=== PATIENT | female | born 1980 | race Caucasian/White ===

== ENCOUNTER → 2020-03-15 17:02 | Outpatient (BNVA) | payer BC, SELFPAY | PROVIDERS: Family Provider Nurse Practitioner Family; PCP Nurse Practitioner Family; Visit Provider Nurse Practitioner Family | DX: Z79.899 Other long term (current) drug therapy (principal); R53.83 Other fatigue; E78.2 Mixed hyperlipidemia; D64.9 Anemia, unspecified; E55.9 Vitamin D deficiency, unspecified; R55 Syncope and collapse | CPT/HCPCS: 36415; 80053; 80061; 81001; 82306; 82607; 83036; 83540; 84443; 85025 ==

== ENCOUNTER → 2022-09-05 12:57 | Outpatient (BNVA) | payer SELFPAY | PROVIDERS: Family Provider Nurse Practitioner Family; PCP Nurse Practitioner; Visit Provider Nurse Practitioner | DX: R50.9 Fever, unspecified (principal); J02.0 Streptococcal pharyngitis | CPT/HCPCS: 87400; 87426 ==

== ENCOUNTER 2023-11-07 13:15 | Outpatient (CLI) | payer SELFPAY ==
--- NOTE | 2023-11-07 13:32 | US_ITS ---
WS: [id number] BILATERAL 3D TOMOSYNTHESIS DIGITAL DIAGNOSTIC MAMMOGRAPHY WITH CAD CLINICAL INFORMATION: Lumps in breasts HISTORY: Palpable lump RIGHT breast COMPARISON: 2019 TECHNIQUE: Bilateral CC, MLO, and ML views. FINDINGS: The breasts are composed of heterogeneous fibroglandular density, which can limit the detection of sm all underlying mass lesions. Palpable markers RIGHT breast anteriorly. Deep to the palpable markers i s a partially obscured ovoid density measuring 2.1 x 1.6 cm. Ultrasound is pending. Ovoid nodular densities deep to the LEFT areola anteriorly progressed compared to previous. Ultrasoun d of this area is pending. No other suspicious abnormalities ULTRASOUND BREAST BILATERAL TECHNIQUE: Ultrasound bilateral breast focused area of concern. CLINICAL INFORMATION: Lumps in breasts FINDINGS: RIGHT BREAST: Ultrasound RIGHT breast in the area of palpable concern. At the 11 o'clock position 4 c m from the nipple is a simple cyst measuring 2.1 x 2.4 x 1.5 cm. This is benign. LEFT BREAST: Ultrasound LEFT breast posterior to the areola. Numerous clustered simple cysts correspo nd to the mammographic abnormalities the largest measuring up to 1.3 cm. No other suspicious abnormal ities. No solid lesions. IMPRESSION: US/US breast BI limited* [id number] BI-RADS: 2-Benign FOLLOW UP: 1 Year Follow-up Recommend return to annual screening mammography.
--- NOTE | 2023-11-07 14:00 | MM_ITS ---
WS: [id number] BILATERAL 3D TOMOSYNTHESIS DIGITAL DIAGNOSTIC MAMMOGRAPHY WITH CAD CLINICAL INFORMATION: Lumps in breasts HISTORY: Palpable lump RIGHT breast COMPARISON: 2019 TECHNIQUE: Bilateral CC, MLO, and ML views. FINDINGS: The breasts are composed of heterogeneous fibroglandular density, which can limit the detection of sm all underlying mass lesions. Palpable markers RIGHT breast anteriorly. Deep to the palpable markers i s a partially obscured ovoid density measuring 2.1 x 1.6 cm. Ultrasound is pending. Ovoid nodular densities deep to the LEFT areola anteriorly progressed compared to previous. Ultrasoun d of this area is pending. No other suspicious abnormalities ULTRASOUND BREAST BILATERAL TECHNIQUE: Ultrasound bilateral breast focused area of concern. CLINICAL INFORMATION: Lumps in breasts FINDINGS: RIGHT BREAST: Ultrasound RIGHT breast in the area of palpable concern. At the 11 o'clock position 4 c m from the nipple is a simple cyst measuring 2.1 x 2.4 x 1.5 cm. This is benign. LEFT BREAST: Ultrasound LEFT breast posterior to the areola. Numerous clustered simple cysts correspo nd to the mammographic abnormalities the largest measuring up to 1.3 cm. No other suspicious abnormal ities. No solid lesions. IMPRESSION: MM/[place] [id number] BI-RADS: 2-Benign FOLLOW UP: 1 Year Follow-up Recommend return to annual screening mammography.
== END 2023-11-07 13:16 | disposition home or self-care (01) ==
LOC: RAD 13:15
PROVIDERS: Family Provider Nurse Practitioner Family; PCP Nurse Practitioner Family; Visit Provider Nurse Practitioner Family
DX: N63.11 Unspecified lump in the right breast, upper outer quadrant (principal); N63.42 Unspecified lump in left breast, subareolar; N60.02 Solitary cyst of left breast; N60.01 Solitary cyst of right breast
CPT/HCPCS: 76642; 77062; G0279

== ENCOUNTER → 2024-11-26 15:54 | Outpatient (BNVA) | payer OTHER, SELFPAY | PROVIDERS: Family Provider Nurse Practitioner Family; PCP Nurse Practitioner Family; Visit Provider Nurse Practitioner Family | DX: E78.2 Mixed hyperlipidemia (principal); E55.9 Vitamin D deficiency, unspecified; R53.83 Other fatigue; Z79.899 Other long term (current) drug therapy | CPT/HCPCS: 80053; 80061; 81003; 82306; 83036; 84439; 84443; 85025 ==

== ENCOUNTER 2024-12-23 11:18 | Outpatient (CLI) | payer OTHER, SELFPAY ==
--- NOTE | 2024-12-23 11:20 | MM_ITS ---
WS: [id number] BILATERAL 3D TOMOSYNTHESIS DIGITAL SCREENING MAMMOGRAPHY WITH CAD CLINICAL INFORMATION: Z12.31 - Encounter for screening mammogram for malignant ... HISTORY: Screening mammogram. No current complaints. COMPARISON: 2023 TECHNIQUE: Bilateral CC and MLO views. FINDINGS: The breasts are composed of heterogeneous fibroglandular density tissue, which can limit the detection of small underlying mass lesions. No suspicious mass, asymmetry, calcifications, or architectural distortion. No evidence of malignancy. Similar-appearing nodular breast tissue bilaterally previously demonstrated to represent cysts. MM/MM [facility] tomosynthesis [id number] IMPRESSION: DENSITY: The breasts are heterogeneously dense, which may obscure small masses. BI-RADS: 2 - Benign FOLLOW UP: 1 Year Follow-up Recommend return to annual screening mammography.
== END 2024-12-23 11:19 | disposition home or self-care (01) ==
LOC: MOBLMAM 11:21
PROVIDERS: Family Provider Nurse Practitioner Family; PCP Nurse Practitioner Family; Visit Provider Nurse Practitioner Family
DX: Z12.31 Encounter for screening mammogram for malignant neoplasm of breast (principal); R92.333 Mammographic heterogeneous density, bilateral breasts; N60.11 Diffuse cystic mastopathy of right breast; N60.12 Diffuse cystic mastopathy of left breast
CPT/HCPCS: 77063; 77067

== ENCOUNTER → 2025-06-23 09:52 | Outpatient (BNVA) | payer OTHER, SELFPAY | PROVIDERS: Family Provider Nurse Practitioner Family; PCP Nurse Practitioner Family; Visit Provider Nurse Practitioner Family | DX: N89.8 Other specified noninflammatory disorders of vagina (principal); E11.9 Type 2 diabetes mellitus without complications; E55.9 Vitamin D deficiency, unspecified; E78.2 Mixed hyperlipidemia; Z79.899 Other long term (current) drug therapy; Z12.4 Encounter for screening for malignant neoplasm of cervix | CPT/HCPCS: 87070; 87205; 87624 ==

== ENCOUNTER → 2025-06-30 16:36 | Outpatient (BNVA) | payer SELFPAY | PROVIDERS: Family Provider Nurse Practitioner Family; PCP Nurse Practitioner Family; Visit Provider Nurse Practitioner Family | DX: E11.9 Type 2 diabetes mellitus without complications (principal); R63.5 Abnormal weight gain | CPT/HCPCS: 84439; 86376 ==